=== PATIENT | female | born 1950 | race Caucasian/White ===

== ENCOUNTER → 2017-03-07 | Outpatient (CLI) | payer MEDICARE ==
[2014-12-20 20:42] VITALS: BP 140/86
[~2017-03-07] MED LIST: ETHO250C PO; ETHOSUXIMIDE PO; LIDO700A4 TD; PHEN100C PO; PRIM250T28 PO; SULF1TAB24 PO
--- NOTE | 2017-03-07 11:49 | RAD ---
DATE: 03/07/2017 EXAM: MAMMO SHYLA SCREENING BILATERAL HISTORY: Routine screening COMPARISON: None available This study was interpreted with the benefit of Computerized Aided Detection (CAD). FINDINGS: 2-D and 3-D tomosynthesis imaging was performed in CC and MLO projections. There are scattered fibroglandular densities in the breasts. A small 5 mm nodule is noted near the midline of the left breast best delineated on the cc view and image 41 of the CC tomograms. Its margins are smooth. There is an additional small smooth 4 mm nodule in the inferolateral aspect of the left breast as best seen on CC tomogram image #21. The fibroglandular pattern in both breasts is generally somewhat nodular in character. No other discrete breast nodule is seen. Minimal benign type calcification is present. No suspicious microcalcifications are delineated. IMPRESSION: Two small smooth benign-appearing left breast nodules are noted as described above. Sonographic evaluation is suggested. BI-RADS CATEGORY: 0 INCOMPLETE: NEEDS ADDITIONAL IMAGING EVALUATION AND/OR PRIOR MAMMOGRAMS FOR COMPARISON. RECOMMENDED FOLLOW-UP: ADD ADDITIONAL IMAGING PQRS compliance statement: Patient information was entered into a reminder system with a target due date for the next mammogram. Mammography is a sensitive method for finding small breast cancers, but it does not detect them all and is not a substitute for careful clinical examination. A negative mammogram does not negate a clinically suspicious finding and should not result in delay in biopsying a clinically suspicious abnormality. "Our facility is accredited by the [employer] Mammography Program."
== END | disposition home or self-care (01) ==
LOC: MAMMO 09:23
PROVIDERS: ATTEND Family Medicine
DX: Z12.31 Encounter for screening mammogram for malignant neoplasm of breast (principal); N63 Unspecified lump in breast
CPT/HCPCS: 77063; G0202; 77067

== ENCOUNTER → 2017-03-13 | Outpatient (CLI) | payer MEDICARE ==
[2014-12-20 20:42] VITALS: BP 140/86
--- NOTE | 2017-03-13 12:44 | RAD ---
Left breast sonogram Clinical indications: Further evaluation of nodules seen on screening mammogram dated March 07, 2017 one at the 4:00 position and another one at the 6 clock position seen best on 3-D images. Findings: High-resolution sonography of the lower outer quadrant left breast from the 3:00 to 6 clock position was performed. At the 4:00 position, 2 cm from the nipple, a small hypoechoic nodule is seen measuring 4 mm in size which most likely represents a complex cyst. There is a another small similar hypoechoic nodule at the 6:00 position 6 cm from nipple measuring 4 mm in size. Similar nodules are seen throughout the left breast but these 2 correspond to the mammographic findings. IMPRESSION: Probable complex cysts of the left breast. 6 month follow-up 3D mammography and left breast sonography is recommended. BI-RADS Category 3, probable benign finding. Six-month follow-up is recommended. The patient information was entered into the data reminder system with a target due date for the next imaging studies of September 12, 2017.
== END | disposition home or self-care (01) ==
LOC: US 10:53
PROVIDERS: ATTEND Family Medicine
DX: N63 Unspecified lump in breast (principal)
CPT/HCPCS: 76641

== ENCOUNTER → 2020-01-12 | Outpatient (CLI) | payer MEDICARE, OTHER ==
[2014-12-20 20:42] VITALS: BP 140/86
[2020-01-12 12:12] LABS: BASO # 0.1 x10^3/uL (0.0-0.2); BASO % 1 % (0-3); EOS # 0.1 x10^3/uL (0.0-0.7); EOS % 3 % (0-3); HEMATOCRIT 43.5 % (36.0-47.0); HEMOGLOBIN 14.2 g/dL (12.0-15.5); LYMPH # 1.4 x10^3/uL (1.0-4.8); LYMPH % 29 % (24-48); MEAN CORPUSCULAR HEMOGLOBIN 31 pg (25-35); MEAN CORPUSCULAR HGB CONC 33 g/dL (31-37); MEAN CORPUSCULAR VOLUME 96 fL (79-100); MONO # 0.4 x10^3/uL (0.0-1.1); MONO % 9 % (0-9); NEUT # 2.7 x10^3uL (1.8-7.7); NEUT % 58 % (31-73); PLATELET COUNT 234 x10^3/uL (140-400); RED BLOOD COUNT 4.55 x10^6/uL (3.50-5.40); RED CELL DISTRIBUTION WIDTH 14.3 % (11.5-14.5); WHITE BLOOD COUNT 4.6 x10^3/uL (4.0-11.0)
[2020-01-12 12:24] LABS: ANION GAP 9 (6-14); BLOOD UREA NITROGEN 16 mg/dL (7-20); CALCIUM 9.2 mg/dL (8.5-10.1); CARBON DIOXIDE 27 mmol/L (21-32); CHLORIDE 104 mmol/L (98-107); GFR 55.3; GLUCOSE 86 mg/dL (70-99); PHENY 4.9 mcg/mL (10.0-20.0); POTASSIUM 3.9 mmol/L (3.5-5.1); SODIUM 140 mmol/L (136-145)
[2020-01-12 12:32] LABS: BACTERIA,URINE FEW /HPF (0-FEW); BILIRUBIN,URINE NEG (NEG); CLARITY,URINE CLOUDY; COLOR,URINE YELLOW; GLUCOSE,URINE NEG (NEG); HYALINE CASTS, URINE OCC /HPF; NITRITE,URINE NEG (NEG); SQUAMOUS EPITHELIAL CELL,UR OCC /LPF; UROBILINOGEN,URINE 0.2 mg/dL (0.2 mg/dL)
--- NOTE | 2020-01-12 15:33 | RAD ---
DATE: January 12, 2020 EXAM: MAMMO SHYLA SCREENING BILATERAL HISTORY: Screening study. COMPARISON: 2017. This study was interpreted with the benefit of Computerized Aided Detection (CAD). 2-D digital mammographic views of both breasts were performed in the CC and MLO projections. 3-D digital tomosynthesis images of both breasts were performed in the CC and MLO projections and reviewed on a computer workstation. FINDINGS: Breast Density: SCATTERED The breast parenchyma shows scattered fibroglandular densities. Breast parenchyma level B.. There are no dominant suspicious masses, suspicious microcalcifications or evidence of architectural distortion. Bilateral breast nodularity is stable. IMPRESSION: No mammographic indicators for malignancy. BI-RADS CATEGORY: 2 BENIGN FINDING RECOMMENDED FOLLOW-UP: 12M 12 MONTH FOLLOW-UP PQRS compliance statement: Patient information was entered into a reminder system with a target due date January 13, 2021 for the next mammogram. Mammography is a sensitive method for finding small breast cancers, but it does not detect them all and is not a substitute for careful clinical examination. A negative mammogram does not negate a clinically suspicious finding and should not result in delay in biopsying a clinically suspicious abnormality. "Our facility is accredited by the [employer] Mammography Program." The patient's breast density may affect the ability of mammography to detect breast cancer. There are 4 categories of breast density, A, B, C and D. Breast density A means that most of the breast tissue is replaced with adipose tissue and therefore is not dense. Breast density B means that the breast tissue is mildly dense and scattered. Breast density C means that the breast tissue is heterogeneously dense. Breast density D means that the breast tissue is very dense. Breast densities especially C and D may decrease the sensitivity of mammography to detect breast cancer. Therefore, the patient may benefit from 3-D breast mammography (3D breast tomography) as a part of their screening mammogram. Insurance may or may not pay for this additional imaging. The patient's breast density based on today's mammogram is category B.
[2020-01-13 14:08] LABS: THYROID STIM HORMONE (TSH) 4.537 uIU/mL (0.358-3.740)
== END | disposition home or self-care (01) ==
LOC: MAMMO 11:26
PROVIDERS: ATTEND Family Medicine
DX: Z12.31 Encounter for screening mammogram for malignant neoplasm of breast (principal); S83.251A Bucket-handle tear of lateral meniscus, current injury, right knee, initial encounter; I99.8 Other disorder of circulatory system; G40.111 Localization-related (focal) (partial) symptomatic epilepsy and epileptic syndromes with simple partial seizures, intractable, with status epilepticus; E78.01 Familial hypercholesterolemia; N32.81 Overactive bladder; D68.8 Other specified coagulation defects; X58.XXXA Exposure to other specified factors, initial encounter; Y93.89 Activity, other specified; Y92.89 Other specified places as the place of occurrence of the external cause; Y99.8 Other external cause status
CPT/HCPCS: 36415; 77063; 77067; 80048; 80061; 80185; 81001; 84439; 84443; 85025

== ENCOUNTER 2022-03-12 14:57 | Observation (INO) | payer MEDICARE, OTHER ==
[~2022-03-12] VITALS: Ht 167.6 cm; Wt 90.5 kg
[~2022-03-12 14:57] MED LIST changes: +PHENYTOIN SODIUM EXTENDED 100 MG CAPSULE PO SCH
[2022-03-12] MEDS ORDERED: IV NORMAL SALINE 1,000ML 1,000 ML IV ONE (15:45)
[2022-03-12 16:13] LABS: BASO % 1 % (0-3); EOS % 0 % (0-3); HEMATOCRIT 44.1 % (36.0-47.0); HEMOGLOBIN 14.3 g/dL (12.0-15.5); LYMPH # 1.4 x10^3/uL (1.0-4.8); LYMPH % 17 % (24-48); MEAN CORPUSCULAR HEMOGLOBIN 31 pg (25-35); MEAN CORPUSCULAR HGB CONC 33 g/dL (31-37); MEAN CORPUSCULAR VOLUME 94 fL (79-100); MONO # 0.5 x10^3/uL (0.0-1.1); MONO % 6 % (0-9); NEUT # 6.2 x10^3uL (1.8-7.7); NEUT % 76 % (31-73); PLATELET COUNT 287 x10^3/uL (140-400); RED BLOOD COUNT 4.68 x10^6/uL (3.50-5.40); RED CELL DISTRIBUTION WIDTH 14.6 % (11.5-14.5); WHITE BLOOD COUNT 8.1 x10^3/uL (4.0-11.0)
--- NOTE | 2022-03-12 16:13 | RAD ---
CT HEAD/BRAIN WO History: Acute on chronic seizure-like activity. Comparison: CT head 12/20/2014 Technique: Noncontrast CT imaging was performed of the head. Findings: No intracranial hemorrhage. No mass effect. No hydrocephalus. No evidence of acute territorial infar ction. Atherosclerotic calcification of the intracranial carotid arteries. Mild prominence of the sul ci and ventricles consistent with age-related volume loss. Imaged orbits are unremarkable. Trace fluid in the bilateral maxillary sinuses. The scalp and calvari um are unremarkable. Impression: 1. No acute intracranial abnormality. ----- Exposure: One or more of the following individualized dose reduction techniques were utilized for thi s examination: 1. Automated exposure control 2. Adjustment of the mA and/or kV according to patient size 3. Use of iterative reconstruction technique. Electronically signed by: Nikolay Nelson MD (03/12/2022 4:10 PM) [id number]
--- NOTE | 2022-03-12 16:24 | PHYS DOC ---
Past History Past Medical History: High Cholesterol, Hypothyroid, Seizure Past Medical History Limited secondary to postictal state Past Surgical History: No Surgical History Past Surgical History Limited secondary to postictal state Smoking: Non-smoker Alcohol Use: None Drug Use: None Social History Limited secondary to postictal state General Adult EDM: Chief Complaint: SEIZURE HPI: HPI: 72-year-old female with a history of focal seizures presents with a chief complaint of generalized seizure-like activity. Her is present in the room with her and reports that the first seizure began at 7:30 AM. He reports that she has had 5 seizures between 7:30 AM and 2:30 PM. states that the seizures she typically has involves twitching of her extremities however today there were full body tonic-clonic seizures which is not normal for her. states she recently finished a antibiotic course of doxycycline and azithromycin with a steroid pack for bronchitis. Patient reports they have also recently adjusted her seizure medications which she takes. Spouse reports compliance with these medications. Denies recent trauma. History of present illness limited secondary to altered mental status/postictal state. Review of Systems: Review of Systems: Constitutional: Denies fever or chills HENT: Denies epistaxis Cardiovascular: Denies chest pain GI: Denies abdominal pain, nausea, or vomiting Integument: Denies laceration Neurologic: Denies headache, Reports focal weakness, reports seizures Review of systems limited secondary to postictal state/altered mental status Current Medications: Current Meds: Current Medications Medications (Trade) Dose Ordered Sig/Sofía Start Time Stop Time Status Last Admin Dose Admin Lorazepam (Ativan Inj) 2 mg STK-MED ONCE 03/12/22 15:42 03/12/22 15:42 DC Sodium Chloride 1,000 ml @ 1,000 mls/hr 1X ONCE 03/12/22 15:45 03/12/22 16:44 UNV Allergies: Allergies: Allergies Coded Allergies Type Severity Reaction Last Updated Verified naproxen Allergy Unknown 11/04/14 Yes Physical Exam: PE: Constitutional: Well developed, obese, appears to be in postictal state, non- toxic appearance HENT: Normocephalic, atraumatic Eyes: PERRL, EOMI, conjunctiva normal, no discharge, no nystagmus Neck: Normal range of motion, no tenderness, supple Lungs & Thorax: No respiratory distress, equal chest rise and fall Abdomen: Soft, no tenderness Skin: Warm, dry, no erythema, no rash Extremities: No tenderness, ROM intact, no edema Neurologic: Alert and oriented X 2, extremity tremors, seems to be in a confused state likely postictal Psychologic: Flat normal, slow to respond Current Patient Data: Vital Signs: Vital Signs Date Time Temp Pulse Resp B/P (MAP) Pulse Ox O2 Delivery O2 Flow Rate FiO2 03/12/22 15:10 98.5 84 18 143/83 (103) 95 Room Air EKG: EKG: EKG noted for significant baseline artifact @16:08:05 Sinus Tachycardia 108bpm, NO obvious ST elevation, QRS 104 ms, QT/QTc 358/484ms Radiology/Procedures: Radiology/Procedures: PROCEDURE: CT HEAD WO CONTRAST CT HEAD/BRAIN WO History: Acute on chronic seizure-like activity. Comparison: CT head 12/20/2014 Technique: Noncontrast CT imaging was performed of the head. Findings: No intracranial hemorrhage. No mass effect. No hydrocephalus. No evidence of acute territorial infarction. Atherosclerotic calcification of the intracranial carotid arteries. Mild prominence of the sulci and ventricles consistent with age-related volume loss. Imaged orbits are unremarkable. Trace fluid in the bilateral maxillary sinuses. The scalp and calvarium are unremarkable. Impression: 1. No acute intracranial abnormality. ----- Exposure: One or more of the following individualized dose reduction techniques were utilized for this examination: 1. Automated exposure control 2. Adjustment of the mA and/or kV according to patient size 3. Use of iterative reconstruction technique. Electronically signed by: Nikolay Nelson MD (03/12/2022 4:10 PM) [id number] Heart Score: C/O Chest Pain: N/A Course & Med Decision Making: Course & Med Decision Making Pertinent Labs and Imaging studies reviewed. (See chart for details) Patient with history of what sounds like focal seizures for which she takes multiple seizure medications presents with generalized seizure-like activity. Patient does appear to be postictal state. CT head without acute finding. Labs obtained and posted to chart. IV fluid hydration given. Given amount of seizures in a short period of time, decision to admit patient for further evaluation and treatment. Attempted to call patient's neurologist Dr. Duong. Dr. Duong requests addition bolus of 300mg of Dilantin. Discussed with Dr. Alas (PCP) who is in agreement with admission. Will place order for Dr. Duong (neurology) consultation. Discussed findings and plan with patient and family, who acknowledge understanding and agreement. Apurva Disclaimer: Apurva Disclaimer: This electronic medical record was generated, in whole or in part, using a voice recognition dictation system. Departure Departure: Impression: Primary Impression: Breakthrough seizure Disposition: ADMITTED INPATIENT Admitting Physician: Abiel Alas Condition: STABLE Referrals: ABIEL ALAS MD (PCP) SATHISH ROTHMAN DO Mar 12, 2022 16:24
[2022-03-12 16:26] LABS: ANION GAP 9 (6-14); BLOOD UREA NITROGEN 9 mg/dL (7-20); BUN/CREATININE RATIO 11 (6-20); CALCIUM 9.1 mg/dL (8.5-10.1); CARBON DIOXIDE 27 mmol/L (21-32); CHLORIDE 105 mmol/L (98-107); CREATININE 0.8 mg/dL (0.6-1.0); GFR 70.9; GLUCOSE 108 mg/dL (70-99); POTASSIUM 4.4 mmol/L (3.5-5.1); SODIUM 141 mmol/L (136-145)
[2022-03-12 16:43] LABS: ALBUMIN 3.2 g/dL (3.4-5.0); ALBUMIN/GLOBULIN RATIO 0.8 (1.0-1.7); ALK PHOS 106 U/L (46-116); ALT (SGPT) 48 U/L (14-59); AST (SGOT) 34 U/L (15-37); MAGNESIUM 2.2 mg/dL (1.8-2.4); PHENY 10.5 mcg/mL (10.0-20.0); TOTAL BILIRUBIN 0.3 mg/dL (0.2-1.0); TOTAL PROTEIN 7.3 g/dL (6.4-8.2)
[2022-03-12] MEDS ORDERED: PHENYTOIN SODIUM EXTENDED 100 MG CAPSULE PO ONE (18:00)
[2022-03-12] MEDS ORDERED: ONDANSETRON PF 4 MG/2 ML VIAL. IVP PRN (18:00)
--- NOTE | 2022-03-12 19:25 | EKG ---
[address] [address] Test Date: 2022-03-12 Test Time: 16:08:05 Pat Name: DOUG SCANLON Department: Room: 109 A Gender: F Certified Low Vision Therapist: : [id number] Requested By: SATHISH ROTHMAN Order Number: [id number] Reading MD: Preston Suggs Measurements Intervals Ira Rate: 108 P: 31 SC: 164 QRS: 39 QRSD: 104 T: 39 QT: 358 QTc: 484 Interpretive Statements SINUS TACHYCARDIA ATRIAL PREMATURE COMPLEX(ES) Electronically Signed On 03-16-2022 13:48:35 CDT by Preston Suggs
--- NOTE | 2022-03-12 19:49 | NUR ---
The patient, DOUG SCANLON, 72 y/o, F admitted by ABIEL ALAS MD, was given written information regarding hospital policies, unit procedures and contact persons. Valuables were checked and logged. Call light at reach.
--- NOTE | 2022-03-12 20:00 | NUR ---
Pt's Gabriel accompanied pt to room. Unsure of home meds, requested RN call [facility] to get current list. [facility] contacted and med list updated. Meds reconciled per Dr. Jansen. Neuro consult called to Dr. Duong, spoke directly. New order for repeat Dilantin level in AM prior to next scheduled dose.
[2022-03-12 20:09] VITALS: BP 156/85
[2022-03-12] MEDS ORDERED: PRAV40TA2 PO (20:45)
[2022-03-12] MEDS ORDERED: CLOB15OI TP (20:45)
[2022-03-12] MEDS ORDERED: LEVO50TA72 PO (20:45)
[2022-03-12] MEDS ORDERED: CLOB50FO TP (20:45)
[2022-03-12] MEDS ORDERED: MIRA25TA PO (20:45)
[2022-03-12] MEDS ORDERED: PHEN100C4 PO (20:45)
[2022-03-12] MEDS ORDERED: LAMO200T6 PO (20:45)
[2022-03-12] MEDS ORDERED: TOLT4CAP PO (20:45)
[2022-03-12] MEDS ORDERED: PATCH REMOVAL. MC SCH (21:00)
[2022-03-12] MEDS ORDERED: PRIMIDONE 250 MG TABLET PO SCH (21:00)
[2022-03-12] MEDS ORDERED: ETHOSUXIMIDE 500 MG PO SCH (21:00)
[2022-03-12] MEDS ORDERED: SMZ/TMP 800/160MG TABLET. PO SCH (21:00)
[2022-03-12] MEDS ORDERED: ATORVASTATIN CALCIUM 10 MG TABLET. PO SCH (21:15)
[2022-03-12] MEDS: lamoTRIgine 100 MG TABLET. PO SCH (21:21)
[2022-03-12 22:57] VITALS: BP 103/56
[2022-03-13 05:22] VITALS: BP 104/69
[2022-03-13] MEDS ORDERED: LEVOTHYROXINE 50 MCG TABLET PO SCH (06:00)
--- NOTE | 2022-03-13 06:07 | NUR ---
Pt rested well overnight. Awoke this morning much more lucid. Able to interact appropriately and make needs known. No seizure activity noted this shift.
[2022-03-13 06:30] LABS: PHENY 6.7 mcg/mL (10.0-20.0)
[2022-03-13] MEDS ORDERED: PRIMIDONE 250 MG TABLET PO SCH (08:00)
[2022-03-13] MEDS ORDERED: ETHOSUXIMIDE 500 MG PO SCH (08:00)
[2022-03-13] MEDS: PHENYTOIN SODIUM EXTENDED 100 MG CAPSULE PO SCH ×2 (09:00→14:00)
[2022-03-13] MEDS ORDERED: LIDOCAINE (700MG/PATCH) PATCH. TD SCH (09:00)
[2022-03-13] MEDS ORDERED: MIRABEGRON 25 MG TAB.ER.24H PO SCH (09:00)
[2022-03-13] MEDS ORDERED: CLOBETASOL EMOLLIENT 0.05% TOPICAL CREAM 15GM TUBE. TP SCH (09:00)
[2022-03-13] MEDS ORDERED: CLOBETASOL PROPIONATE TP SCH (09:00)
[2022-03-13] MEDS ORDERED: LEVE500T56 PO (11:16)
--- NOTE | 2022-03-13 11:21 | RAD ---
XR CHEST 2V History: Cough. Comparison: None. Technique: PA and lateral chest radiographs. Findings: The lungs are adequately and symmectrically inflated. No airspace consolidation, pleural effusion or pneumothorax. The cardiomediastinal silhoutte and pulmonary vasculature are within normal limits. Sof t tissues and osseous structures are unremarkable. Impression: 1. No acute cardiopulmonary process. Electronically signed by: Nikolay Nelson MD (03/13/2022 11:19 AM) [id number]
[2022-03-13] MEDS ORDERED: levETIRAcetam 500 MG TABLET PO SCH ×2 (11:30)
[2022-03-13 11:31] VITALS: BP 94/58
[2022-03-13] MEDS: lamoTRIgine 100 MG TABLET. PO SCH (11:45)
[2022-03-13] MEDS: OXYBUTYNIN CHLORIDE 5 MG TABLET PO SCH ×2 (11:45→14:00)
--- NOTE | 2022-03-13 12:36 | HP ---
DATE OF SERVICE: 03/13/2022 ADMIT DATE: 03/12/2022 HISTORY OF PRESENT ILLNESS: This is a 72-year-old female with history of seizures who has been complaining of generalized seizure-like activity. The patient notes first seizure about 7:00 this morning, the day of admission. The patient notes she has been involved with twitching of her extremities, full body tonic-clonic seizure activity, eyes rolling back. No biting of tongue. No loss of urine; however, the patient notes she has been on antibiotics and the patient also notes that she has been taking her medications. She has been adjusting some of her medications. She sees Dr. Duong, neurologist, for her seizure activity. Denies any recent trauma. The patient was seen in the Emergency Room, given some Ativan. She was admitted for further evaluation and observation of her seizure activity. PAST MEDICAL HISTORY: Tonic-clonic seizures, epilepsy, tremors, tonsillectomy, gait disturbances, frequent falls, and arthritis. IMMUNIZATIONS: Tetanus toxoid, influenza vaccination, pneumococcal up-to-date. FAMILY HISTORY: Positive for cancer. ALLERGIES: NAPROXEN. SOCIAL HISTORY: No smoking, alcohol or drug use. FULL CODE. REVIEW OF SYSTEMS: Denies headaches, visual change, blurred vision, double vision. Denies any melena, hematochezia, hematemesis and neurologically baseline except for the tremors and seizure-like activity. MEDICATIONS: Include that of pravastatin, Dilantin 100 mg 3 times a day, lamotrigine 200 mg b.i.d., levothyroxine 50 mcg daily, clobetasol propionate 50 grain ointment p.r.n., Detrol-LA 4 mg daily, Myrbetriq 50 mg for overactive bladder. PHYSICAL EXAMINATION: GENERAL: The patient on exam is a pleasant white female, presently in no apparent distress. Has a mild cough. VITAL SIGNS: Blood pressure 156/85, respiratory rate 20, pulse 60, afebrile. HEENT: The patient's head was atraumatic, normocephalic. Eyes: PERRLA without jaundice. Mouth and throat show poor dentition. NECK: Supple without JVD, carotid bruits, or thyromegaly. LUNGS: Clear to auscultation. CARDIOVASCULAR: Regular sinus rhythm. ABDOMEN: The patient's abdomen is soft, nontender, no rebounding or guarding. Positive bowel sounds, no hepatosplenomegaly. EXTREMITIES: No clubbing, cyanosis, nor edema. NEUROLOGIC: The patient was alert and oriented x 3. Speech fluent, spontaneous, appropriate. Cranial nerves 2-12 are grossly intact. The patient made no evidence of seizure activity at this time. LABORATORY DATA: Demonstrated white count 8, hemoglobin 14 and hematocrit 44. Sodium 141, 4.4, 9, and 0.8, albumin 3.2. Serology negative for COVID. The patient otherwise doing extremely well. Otherwise, baseline, stable. We will await chest x-ray. Dr. Duong is making good progress and will be monitoring her and make timely suggestions about control and get an EEG on her tomorrow. IMPRESSION: Tonic-clonic possible seizures, tremor and have her just on the medications. STAN/STEPHANIE/JUAN DR: STAN/oniel TID: [id number]
--- NOTE | 2022-03-13 13:30 | NUR ---
PATIENT WAS DISCHARGED TO HOME. PATIENTS DISCHARGE INSTRUCTIONS WERE REVIEWED WITH THE PATIENT WITH PATIENT VERBALIZING UNDERSTANDING. PATIENT LEFT THE UNIT VIA WHEELCHAIR ESCORTED BY MODEL AND MOLD MAKER. PATIENT WAS TRANSPORTED HOME VIA PRIVATE VEHICLE.
--- NOTE | 2022-03-14 03:39 | CONS ---
NEURO CONSULTATION REFERRING PHYSICIAN: Dr. Jansen. REASON FOR CONSULTATION: Recurrent seizure-like activities. HISTORY OF PRESENT ILLNESS: This is a 72-year-old right-handed female who has had intermittent seizure-like activities a few days ago, described as generalized tonic-clonic seizure with loss of consciousness, followed by postictal confusion. The patient has had impaired balance and frequent falls, but she did not have recent closed head injuries. The patient has longstanding history of seizure of unknown etiology, probably due to previous head injuries. She denies headaches, visual disturbances, nausea, vomiting, chest pain, shortness of breath or palpitation. However, she has been complaining of intermittent cough and recently diagnosed with bronchitis and placed on antibiotics, doxycycline. The patient has been on Dilantin for several years and recently her Dilantin level was subtherapeutic, then by her primary care physician was given extra doses of Dilantin and 2 days later her Dilantin level was approximately 10. She was seen in my office yesterday and was scheduled for electroencephalogram to be done on Saturday. The patient stated her current Dilantin dose of 200 mg in the morning and 300 mg at night. I received a call from the Emergency Room that the patient has had focal seizure and presented to Emergency Room with tremor of both upper extremities without complete loss of consciousness. Her Dilantin level was 10.5. It was recommended to give her another bolus of 300 mg intravenously. The patient has not had any recurrent seizure since admission; however, her current Dilantin level is subtherapeutic at 6.7. According to the patient, she did not have any loss of consciousness after her yesterday's seizures. She described it as a tremor of the upper extremities and had no postictal confusion, tongue biting or urinary or bowel incontinence. She complains of intermittent global headaches. She denies nausea, vomiting, chest pain, shortness of breath, palpitation, dysarthria or dysphagia. PAST MEDICAL HISTORY: Significant for seizure disorder of unknown etiology, tremor of the upper extremities, hypothyroidism, hyperlipidemia, arthritis and impaired balance. PAST SURGICAL HISTORY: Positive for tonsillectomy. FAMILY HISTORY: Noncontributory. SOCIAL HISTORY: The patient is . She has 2 children. She denies smoking, alcohol drinking or illicit drug use. CURRENT HOME MEDICATIONS: Oxybutynin 5 mg t.i.d., clobetasol 1 ampule daily, phenytoin 100 mg t.i.d., mirabegron 50 mg daily, levothyroxine 50 mcg p.o. daily, Lipitor 10 mg at bedtime, lamotrigine 200 mg b.i.d., lorazepam 1 mg p.r.n. for anxiety and Zofran 4 mg q. 4 hours p.r.n. for vomiting. ALLERGIES: NAPROXEN. REVIEW OF SYSTEMS: A 10-point review of system was performed as mentioned above in history of present illness. PHYSICAL EXAMINATION: GENERAL: Well-developed, well-nourished female in no acute distress. She weighs 90.5 kilos. VITAL SIGNS: Blood pressure 104/69, respiratory rate 18, pulse is 77, temperature 98.3, oxygen saturation is 95% on room air. HEENT: Normocephalic, atraumatic, otherwise unremarkable. NECK: Supple. Negative for carotid bruit, lymphadenopathy or thyromegaly. LUNGS: Clear to A and P. CARDIOVASCULAR: Regular rate and rhythm, normal S1, S2. There is no S3, S4 or murmur. ABDOMEN: Soft. Bowel sounds positive. No palpable mass, organomegaly or tenderness. EXTREMITIES: Negative for cyanosis, clubbing or pedal edema. NEUROLOGIC: Mental status: The patient is alert and oriented x 3. Speech is fluent. There is no language dysfunction. Memory, judgment and abstracting thinking are fair. The patient denies hallucination or delusion. Cranial nerves: Visual schneider are full. The pupils are reactive to light and accommodation. The extraocular movements are intact. There is no nystagmus. There is no facial motor or sensory deficits. Hearing is intact bilaterally. The palate is elevated symmetrically. Sternocleidomastoid muscles are powerful bilaterally. The patient shrugs her shoulders symmetrically, protrudes her tongue in the midline without fasciculation or atrophy. Motor exam: No focal muscle bulk wasting. The tone is normal. The strength is 5/5 throughout. Sensory examination revealed normal pinprick, light touch, vibratory and position senses. Deep tendon reflexes were symmetric and active without pathologic responses. Gait and coordination: The patient has abnormal tandem gait. Romberg stance is positive. DIAGNOSTIC DATA: Initial nonenhanced head CT scan revealed no evidence of acute intracranial process, but showed mild generalized atrophy. LABORATORY DATA: CBC revealed blood cells of 8.1 thousand, hemoglobin 14.9, hematocrit 44.1, platelet count 287,000. Chemistry revealed sodium of 141, potassium 4.4, chloride 105, CO2 of 27, BUN 9, creatinine 0.4, glucose 108. Lactic acid is 1.9. Liver enzymes are normal. CPK is normal. Dilantin level today is subtherapeutic at 6.7. COVID rapid test is negative. IMPRESSION: 1. Longstanding history of seizure disorder, etiology uncertain, and possible breakthrough seizure described as generalized tonic-clonic seizure. The patient was admitted yesterday with recurrent episodes of tremor. Her current Dilantin level is subtherapeutic despite was loaded with extra dose of Dilantin in Emergency Room. 2. History of hyperlipidemia and hypothyroidism. RECOMMENDATIONS: 1. We will continue with Dilantin and start patient on Keppra at 500 mg b.i.d. 2. The patient has been scheduled for electroencephalogram on 03/14/2022. ANIYA/NEREYDA DR: SUKHDEV/oniel TID: [id number]
== END 2022-03-13 13:50 | disposition home or self-care (01) ==
LOC: ER 14:57 → ER HOLD 17:48 → INTOOBSV 17:48 → 1 SOUTH 18:44
PROVIDERS: ADMIT Family Medicine; ATTEND Family Medicine
DX: G40.409 Other generalized epilepsy and epileptic syndromes, not intractable, without status epilepticus (principal); Z20.822 Contact with and (suspected) exposure to COVID-19; E03.9 Hypothyroidism, unspecified; E78.00 Pure hypercholesterolemia, unspecified; E78.5 Hyperlipidemia, unspecified; F41.9 Anxiety disorder, unspecified; M19.90 Unspecified osteoarthritis, unspecified site; M10.9 Gout, unspecified; J40 Bronchitis, not specified as acute or chronic; H53.8 Other visual disturbances; F05 Delirium due to known physiological condition; Z79.899 Other long term (current) drug therapy; Z98.890 Other specified postprocedural states; Z90.49 Acquired absence of other specified parts of digestive tract
CPT/HCPCS: 36415; 70450; 71046; 80053; 80185; 82553; 83605; 83735; 85025; 87426; 93005; 96361; 96374; 96376; 99285; G0378; J2060; J7030; U0003; G0379